=== PATIENT | male | born 2000 | race American Indian/Alaskan Native ===

== ENCOUNTER 2022-10-21 16:47 | Emergency (ER) | payer SELFPAY ==
[2022-10-21] MEDS ORDERED: Ketorolac 60 MG/2 ML SDV IM ONE (19:26)
[2022-10-21 19:57] LABS: CORONAVIRUS COVID-19 NAA NEGATIVE (NEGATIVE); INFLUENZA A NAA POSITIVE (NEGATIVE); INFLUENZA B NAA NEGATIVE (NEGATIVE)
== END 2022-10-21 20:32 | disposition home or self-care (01) ==
LOC: MW.ED 16:47
DX: J10.1 Influenza due to other identified influenza virus with other respiratory manifestations (principal); Z20.822 Contact with and (suspected) exposure to COVID-19
CPT/HCPCS: 0240U; 96372; 99283; J1885